=== PATIENT | male | born 1950 | race Caucasian/White ===

== ENCOUNTER 2017-02-02 07:18 | Emergency (ER) | payer MEDICARE, OTHER ==
[~2017-02-02] VITALS: Ht 177.8 cm; Wt 81.8 kg
[~2017-02-02 07:18] MED LIST: ASCRIPTIN325 MG PO; ASPIRIN 81M81 MG/TA2 PO; ASTELIN NASAL S34 ML NS; BRILINTA90 MG PO; FLOMAX 0.40.4 MG/CAP PO; FLONASE NASAL S16 GM NS; IMDUR 30MG30 MG/TAB PO; LIPITOR 40MG TA40 MG PO; NEXIUM 40MG40 MG PO; NITROMIST0.4 MG/Act SL; PATANOL OPHTHALM5 ML OU; PRINIVIL2.5 MG PO; PROCARDIA XL90 MG PO; PROCARDIA10 MG PO; PROSCAR 5MG5 MG PO; ROXICODONE 55 MG/TAB PO; TENORMIN 5050 MG/TAB PO; TENORMIN0.5 MG/ML PO; VOLTAREN GEL 1%1 TU TP; ZESTRIL 5MG5 MG PO; [UNRECOGNIZED DRUG - REMARK]
[2017-02-02 07:32] VITALS: BP 150/83; PULSE 80; TEMP 97
[2017-02-02] MEDS ORDERED: PERCOCET 325 MG1 TA2 PO (07:50)
[2017-02-02] MEDS ORDERED: ULTRAM 50MG TAB50 MG PO (07:50)
[2017-02-02] MEDS ORDERED: NATURAL IRON65 MG PO (08:20)
[2017-02-02] MEDS ORDERED: REFRESH PLUS 00.4 M1 OP (08:22)
[2017-02-02] MEDS ORDERED: SALINE 45 ML45 ML NS (08:23)
[2017-02-02] MEDS ORDERED: ZADITOR 5 ML5 ML OP (08:25)
[2017-02-02] MEDS ORDERED: SINGULAIR 110 MG/TAB PO (08:25)
== END 2017-02-02 08:53 | disposition home or self-care (01) ==
LOC: COL.ER 07:18
DX: M79.661 Pain in right lower leg (principal); M25.561 Pain in right knee; M79.671 Pain in right foot; M25.571 Pain in right ankle and joints of right foot; I25.10 Atherosclerotic heart disease of native coronary artery without angina pectoris; I10 Essential (primary) hypertension; K21.9 Gastro-esophageal reflux disease without esophagitis; F17.210 Nicotine dependence, cigarettes, uncomplicated; Z23 Encounter for immunization; Z79.82 Long term (current) use of aspirin; W10.9XXA Fall (on) (from) unspecified stairs and steps, initial encounter; Y92.009 Unspecified place in unspecified non-institutional (private) residence as the place of occurrence of the external cause
CPT/HCPCS: J3010

== ENCOUNTER 2019-08-29 10:30 | Inpatient (IN) | payer MEDICARE, OTHER ==
[~2019-08-29] VITALS: Ht 177.8 cm; Wt 81.2 kg
[~2019-08-29 10:30] MED LIST changes: +NATURAL IRON65 MG PO; +PERCOCET 325 MG1 TA2 PO; +REFRESH PLUS 00.4 M1 OP; +SALINE 45 ML45 ML NS; +SINGULAIR 110 MG/TAB PO; +ULTRAM 50MG TAB50 MG PO; +ZADITOR 5 ML5 ML OP
[2019-08-29 11:06] LABS: HEMATOCRIT 51.2 % (42.0-52.0); HEMOGLOBIN 17.1 g/dl (13.5-18.0); MEAN CELL VOLUME 87 fl (80.0-100.0); MEAN CORPUSCULAR HEMOGLOBIN 29 pg (27.0-31.0); MEAN CORPUSCULAR HGB CONC 33 g/dl (33.0-37.0); MEAN PLATELET VOLUME 11.2 fl (7.4-10.4); PLATELET COUNT 199 K/mm3 (130-400); REDCELL DISTRIBUTION WIDTH-CV 14.4 % (11.5-14.5)
[2019-08-29] MEDS ORDERED: TIAZAC180 MG PO (11:06)
[2019-08-29] MEDS ORDERED: IRON 27 MG PO ×2 (11:07→11:09)
[2019-08-29] MEDS ORDERED: PATANOL OPHTHALM5 ML OU ×3 (11:08→11:12)
[2019-08-29] MEDS ORDERED: PATANOL OPHTHALM5 ML OD (11:08)
[2019-08-29] MEDS ORDERED: REFRESH TEARS 330 ML OP (11:11)
[2019-08-29] MEDS ORDERED: PROTONIX 40MG T40 MG PO (11:11)
[2019-08-29 11:19] LABS: ALBUMIN 4.6 gm/dL (3.5-5.0); BILIRUBIN,TOTAL 1.2 mg/dL (0.0-1.0); CALCIUM 9.2 mg/dL (8.4-10.2); CREATININE, serum 0.88 (0.66-1.25); TOTAL PROTEIN 8.8 gm/dL (6.4-8.2)
[2019-08-29 11:56] LABS: BAND 35 % (0-10); LYMPHOCYTE 18 % (20.0-51.0); NEUTROPHILS 31 % (42.0-75.2); PLATELET ESTIMATE NORMAL (NORMAL)
[2019-08-29 12:06] LABS: COLLECTION METHOD CLEAN CATCH
[2019-08-29 12:15] LABS: MUCOUS Present /lpf; PH 5 (5-8); SQUAMOUS EPITHELIAL None Seen /hpf; URINE APPEARANCE Clear; URINE BACTERIA None Seen /hpf; URINE BILIRUBIN Negative (NEGATIVE); URINE BLOOD Negative (NEGATIVE); URINE COLOR Yellow; URINE GLUCOSE Negative (NEGATIVE); URINE KETONE 1+ (NEGATIVE); URINE LEUKOCYTE ESTERASE Negative (NEGATIVE); URINE NITRATE Negative (NEGATIVE); URINE PROTEIN(semi-quant) 1+ (NEGATIVE); URINE RBC 0-2 /hpf; URINE UROBILINOGEN Negative (NEGATIVE)
[2019-08-29 13:15] VITALS: BP 131/78; PULSE 100; TEMP 98.8
--- NOTE | 2019-08-29 13:45 | NUR ---
Patient was brought to room by ER nurse via wheelchair. Alert and oriented x4. Says pain in abd and back is starting to come back. Abd distended, firm, hypoactive bowel sounds in all quadrants. IV to left AC without redness/drainage/edema.
--- NOTE | 2019-08-29 13:56 | NUR ---
Patient requests pain medication due to increasing pain in abd. Administered Percocet as prescribed. Denies further needs.
--- NOTE | 2019-08-29 14:59 | NUR ---
Continues to rate pain in abd as 10. Requests additional pain meds. Administered Dilaudid as prescribed. Patient sitting up in bed eating lunch tray. in room talking with the patient. Patient denies further needs at this time.
[2019-08-29 16:46] VITALS: BP 132/78; PULSE 116; TEMP 98.6
--- NOTE | 2019-08-29 18:03 | NUR ---
Sitting up in chair. Says that his lunch tray came later in the afternoon so he was not too hungry this evening. Asks if he gets hungry this evening if there are snacks that he would be able to eat. Explain the snacks available in the nourishment room. Patient says that he passed a small amount of gas earlier. Explain that if he does have a bowel movement to leave it in the toilet and call the staff so that we can see it. Rates current pain 2-/10. Denies needs at this time.
[2019-08-29 20:16] VITALS: BP 144/82; PULSE 107; TEMP 99.5
--- NOTE | 2019-08-29 21:30 | NUR ---
Pt had a small loose BM at the beginning of the shift. He was able to get a shower prior to shift change. Pt was sitting up in the chair and he stated that he felt very full. Pt did ask for a sprite drink to help with hiccups. Pt was ambulating in the room very well. Pt has his call light within reach
[2019-08-30] VITALS (7 sets, daily range): BP systolic 137–167; BP diastolic 79–93; PULSE 89–105; TEMP 97.9–99
--- NOTE | 2019-08-30 01:15 | NUR ---
Pt IV pump was beeping and I went in to check on him. Pt was ambulating to the bathroo. Pt did make it to the toilet but he vomited a large amount of vomit in the toilet. He stated that after the hiccups he drink the sprite and he heard the beeping from the pump and decided to go to the bathroom. He was nauseated and tried to make it to the toliet before he vomited. He was given wipes and was helped to get all cleaned up. There was a bag or LR hung at this time as well. Pt is currently back in the chair resting and stated that he felt so much relief after vomiting. Pt has his call light within reach
--- NOTE | 2019-08-30 04:29 | NUR ---
Pt is currently in his chair sleeping. He stated that it was more comfortable for him to sit up in the chair. I did wake him up to make sure that he wasn't having any pain. He stated that he was no having any pain at this time and that he was able to sleep. Call light is within reach
--- NOTE | 2019-08-30 05:33 | NUR ---
Pt used his call light and requested pain mediation .He stated that he was at a 7 out of 10. Pt was given pain medication at this time. Pt has his call light within reach and is currently sitting up in the chair.
--- NOTE | 2019-08-30 07:08 | NUR ---
Pt is currently sitting up in chair. Pt has call light within reach. Reported off to CAROLE Patel
--- NOTE | 2019-08-30 08:20 | NUR ---
Patient sitting up in recliner. Alert and oriented x 3. Assessment complete. Patient had green emisis after eating breakfast. Denies nausea a this time. Hypoactive bowel sounds. Patient states he is still passing some gas. Denies pain or further needs at this time.
--- NOTE | 2019-08-30 08:50 | NUR ---
HALEY met with the patient to discuss discharge plan. The patient lives in [place] with his , Anisa (ph#[phone]), to discuss discharge plan. He reports independence with ADLs and does not have any DME. The patient receives primary care at [facility]. He also receives his medications at [facility]. He reports no difficulties obtaining his meds. The patient does not have advanced directives in EMR, but he states that he thinks that he may have them completed. He states that he would have designated his as his DPOA-HC. The patient plans to return home with his upon discharge. No additional needs at this time.
[2019-08-30 09:38] LABS: MEAN CELL VOLUME 86 fl (80.0-100.0); MEAN CORPUSCULAR HEMOGLOBIN 29 pg (27.0-31.0); MEAN CORPUSCULAR HGB CONC 33 g/dl (33.0-37.0); MEAN PLATELET VOLUME 10.9 fl (7.4-10.4); PLATELET COUNT 183 K/mm3 (130-400); RED BLOOD COUNT 5.23 M/mm3 (4.20-5.60); REDCELL DISTRIBUTION WIDTH-CV 14.4 % (11.5-14.5)
[2019-08-30 09:45] LABS: ALBUMIN 3.9 gm/dL (3.5-5.0); BILIRUBIN,TOTAL 0.6 mg/dL (0.0-1.0); CALCIUM 8.9 mg/dL (8.4-10.2); CREATININE, serum 0.74 (0.66-1.25); POTASSIUM 3.6 mmol/L (3.4-5.0); TOTAL PROTEIN 7.3 gm/dL (6.4-8.2)
[2019-08-30 10:12] LABS: BAND 36 % (0-10); LYMPHOCYTE 26 % (20.0-51.0); NEUTROPHILS 28 % (42.0-75.2); PLATELET ESTIMATE NORMAL (NORMAL)
--- NOTE | 2019-08-30 10:56 | NUR ---
Patient showered, no further needs.
--- NOTE | 2019-08-30 11:36 | NUR ---
First visit from the food general manager. No needs right now.
--- NOTE | 2019-08-30 19:32 | NUR ---
Patient doing well, states relief of hiccups after medication administration. Sleeping at this time. Fluids continue to infuse per orders. Reported off to public address systems mechanic.
--- NOTE | 2019-08-30 20:00 | NUR ---
PT HAS 200CC OF DARK GREEN EMESIS. IS SITTING IN CHAIR AT BEDSIDE. ABD FIRM AND DISTENDED WITH HYPOACTIVE BS. HAS NOT HAD ANY STOOLS TODAY. IV SITE TO LEFT AC WITHOUT REDNESS OR SWELLING. ON CLEAR LIQUIDS.
--- NOTE | 2019-08-30 21:32 | NUR ---
PT HAS HICCUPS AND PAIN TO ABD 6/10. MEDICATED WITH IV DILAUDID AND IM THORAZINE AT THIS TIME.
[2019-08-31 03:15] VITALS: BP 138/74; PULSE 102; TEMP 99.2
--- NOTE | 2019-08-31 05:00 | NUR ---
Pt has mod semi-formed brown stool. Reports his stomach feels softer.
[2019-08-31 07:00] LABS: BASO % 0.2 % (0.0-2.0); EOS % 0.7 % (0-4.0); GRAN # 2.9 (1.4-6.5); GRAN % 64.6 % (42.2-75.2); HEMATOCRIT 40.1 % (42.0-52.0); HEMOGLOBIN 13.3 g/dl (13.5-18.0); LYMPH # 0.8 (1.2-3.4); LYMPH % 16.9 % (20.0-51.0); MEAN CELL VOLUME 87 fl (80.0-100.0); MEAN CORPUSCULAR HEMOGLOBIN 29 pg (27.0-31.0); MEAN CORPUSCULAR HGB CONC 33 g/dl (33.0-37.0); MEAN PLATELET VOLUME 11.6 fl (7.4-10.4); MONO # 0.8 (0.1-0.6); MONO % 17.4 % (1.7-9.3); PLATELET COUNT 175 K/mm3 (130-400); RED BLOOD COUNT 4.61 M/mm3 (4.20-5.60); REDCELL DISTRIBUTION WIDTH-CV 14.1 % (11.5-14.5)
[2019-08-31 07:14] LABS: ALBUMIN 3.3 gm/dL (3.5-5.0); BILIRUBIN,TOTAL 0.5 mg/dL (0.0-1.0); CALCIUM 8.4 mg/dL (8.4-10.2); CREATININE, serum 0.7 (0.66-1.25); POTASSIUM 3.3 mmol/L (3.4-5.0); TOTAL PROTEIN 6.3 gm/dL (6.4-8.2)
[2019-08-31 07:32] VITALS: BP 148/81; PULSE 104; TEMP 98.1
[2019-08-31 12:07] VITALS: BP 166/99; PULSE 89; TEMP 97.7
[2019-08-31 15:52] VITALS: BP 145/87; PULSE 86; TEMP 98.6
--- NOTE | 2019-08-31 18:00 | NUR ---
Patient has been doing well today. No abdominal pain or nausea. His shoulder is sore from an IM injection he received. He has been out of bed most the day. He is independent in the room. Patient was advanced to full liquids today and is tolerating well. His only complaint today was that his eyes and nares felt dry. Eyedrops and nasal spray ordered. He had an order for stool cultures due to diarrhea after his first BM this am. It was sent to the lab. No other changes at this time. Call light within reach.
--- NOTE | 2019-08-31 20:00 | NUR ---
Patient sitting up in recliner. Alert and oriented x 3. Assessment complete. Patient denies pain at this time. States he is passing gas and had a BM today. Ambulated >150 feet in lou with spouse. IV restarted to right forarm x 2 attempts. Fluids infusing per orders. Denies further needs at this time.
[2019-08-31 20:02] VITALS: BP 132/75; PULSE 86; TEMP 98.6
[2019-09-01 00:30] VITALS: BP 126/83; PULSE 76; TEMP 98.3
--- NOTE | 2019-09-01 03:40 | NUR ---
Patient doing well throughout the night. Initially having difficulty falling asleep. Independent in room. Denies pain or further needs at this time.
--- NOTE | 2019-09-01 07:00 | NUR ---
Report received from CAROLE Quijano. pT in bed resting with no needs, willcontinue to monitor.
[2019-09-01 07:08] LABS: BASO % 0.2 % (0.0-2.0); EOS # 0.1 (0.0-0.7); EOS % 2.1 % (0-4.0); GRAN # 3.2 (1.4-6.5); GRAN % 62.4 % (42.2-75.2); HEMATOCRIT 40.3 % (42.0-52.0); HEMOGLOBIN 13.3 g/dl (13.5-18.0); LYMPH % 19.3 % (20.0-51.0); MEAN CELL VOLUME 87 fl (80.0-100.0); MEAN CORPUSCULAR HEMOGLOBIN 29 pg (27.0-31.0); MEAN CORPUSCULAR HGB CONC 33 g/dl (33.0-37.0); MEAN PLATELET VOLUME 11.5 fl (7.4-10.4); MONO # 0.8 (0.1-0.6); MONO % 15.4 % (1.7-9.3); PLATELET COUNT 187 K/mm3 (130-400); RED BLOOD COUNT 4.63 M/mm3 (4.20-5.60); REDCELL DISTRIBUTION WIDTH-CV 14.2 % (11.5-14.5)
[2019-09-01 07:27] LABS: ALBUMIN 3.3 gm/dL (3.5-5.0); BILIRUBIN,TOTAL 0.5 mg/dL (0.0-1.0); CALCIUM 8.8 mg/dL (8.4-10.2); CREATININE, serum 0.65 (0.66-1.25); POTASSIUM 3.8 mmol/L (3.4-5.0); TOTAL PROTEIN 6.5 gm/dL (6.4-8.2)
[2019-09-01 08:05] VITALS: BP 133/82; PULSE 94; TEMP 97.8
--- NOTE | 2019-09-01 08:30 | NUR ---
Assessment charted. PT doing well, anticipating discharge today. Passing gas, has no pain, will continue ot monitor.
--- NOTE | 2019-09-01 10:10 | NUR ---
Discharge teaching completed at this time. INT dc'd, tip intact. Reviewed f/u with nimco MEADE, home meds. Pt verbalized understanding. Pt left with all bleongings, escorted out by myself. criteria met.
== END 2019-09-01 10:00 | disposition home or self-care (01) | DRG 390 ==
LOC: COL.ER 10:30 → SURG 12:20
PROVIDERS: Family Medicine; ADMIT Surgery
DX: K56.600 Partial intestinal obstruction, unspecified as to cause (principal); K21.9 Gastro-esophageal reflux disease without esophagitis; E78.5 Hyperlipidemia, unspecified; E87.6 Hypokalemia; I25.10 Atherosclerotic heart disease of native coronary artery without angina pectoris; I25.2 Old myocardial infarction; Z95.5 Presence of coronary angioplasty implant and graft; Z87.891 Personal history of nicotine dependence
CPT/HCPCS: OP; J1170; J2405; J3010; J3230; J7120; Q9967

== ENCOUNTER 2020-10-14 05:21 | Inpatient (IN) | payer MEDICARE, OTHER ==
[~2020-10-14] VITALS: Ht 177.8 cm; Wt 75.9 kg
[~2020-10-14 05:21] MED LIST changes: +IRON 27 MG PO; +PATANOL OPHTHALM5 ML OD; +PROTONIX 40MG T40 MG PO; +REFRESH TEARS 330 ML OP; +TIAZAC180 MG PO
[2020-10-14 05:40] LABS: BASO % 0.2 % (0.0-2.0); EOS # 0.1 (0.0-0.7); EOS % 2.5 % (0-4.0); GRAN # 2.4 (1.4-6.5); GRAN % 50.5 % (42.2-75.2); HEMATOCRIT 49.1 % (42.0-52.0); HEMOGLOBIN 15.9 g/dl (13.5-18.0); LYMPH # 1.6 (1.2-3.4); LYMPH % 32.6 % (20.0-51.0); MEAN CELL VOLUME 83 fl (80.0-100.0); MEAN CORPUSCULAR HEMOGLOBIN 27 pg (27.0-31.0); MEAN CORPUSCULAR HGB CONC 32 g/dl (33.0-37.0); MONO # 0.7 (0.1-0.6); PLATELET COUNT 240 K/mm3 (130-400); RED BLOOD COUNT 5.89 M/mm3 (4.20-5.60); REDCELL DISTRIBUTION WIDTH-CV 17.6 % (11.5-14.5)
[2020-10-14 05:50] LABS: PROTHROMBIN TIME 11.3 SECONDS (9.7-12.8)
[2020-10-14 05:51] LABS: ALANINE AMINOTRANSFERASE 29 U/L (4-49); ALBUMIN 4.7 gm/dL (3.5-5.0); ALKALINE PHOSPHATASE 100 U/L (50-136); ANION GAP 15 mmol/L (7-16); AST,SGOT 34 U/L (15-37); BILIRUBIN,TOTAL 0.4 mg/dL (0.0-1.0); BLOOD UREA NITROGEN 14 mg/dL (9-20); CALCIUM 9.4 mg/dL (8.4-10.2); CARBON DIOXIDE 21 mmol/L (22-30); CHLORIDE 105 mmol/L (98-107); CREATININE, serum 0.93 (0.66-1.25); GLUCOSE 119 mg/dL (74-106); POTASSIUM 3.8 mmol/L (3.4-5.0); SODIUM 141 mmol/L (137-145)
[2020-10-14 06:02] LABS: TROPONIN-I < 0.012 ng/mL (0.000-0.035)
[2020-10-14] MEDS ORDERED: LIPITOR20 MG PO (07:05)
[2020-10-14] MEDS ORDERED: TIAZAC240 MG PO (07:05)
[2020-10-14 09:08] VITALS: BP 157/97; PULSE 96; TEMP 97.4
[2020-10-14 12:44] VITALS: BP 160/93; PULSE 94; TEMP 97.5
[2020-10-14 17:09] VITALS: BP 134/110; PULSE 107; TEMP 98.1
[2020-10-14 20:48] VITALS: BP 177/107; PULSE 98; TEMP 97.7
[2020-10-14 23:54] VITALS: BP 151/105; PULSE 101; TEMP 97.9
[2020-10-15 03:05] VITALS: BP 162/95; PULSE 83; TEMP 97.5
[2020-10-15 07:17] LABS: BASO % 0.4 % (0.0-2.0); EOS # 0.1 (0.0-0.7); EOS % 1.2 % (0-4.0); GRAN # 3.4 (1.4-6.5); GRAN % 60.4 % (42.2-75.2); HEMATOCRIT 47.6 % (42.0-52.0); HEMOGLOBIN 15.6 g/dl (13.5-18.0); LYMPH # 1.4 (1.2-3.4); LYMPH % 24.6 % (20.0-51.0); MEAN CELL VOLUME 83 fl (80.0-100.0); MEAN CORPUSCULAR HEMOGLOBIN 27 pg (27.0-31.0); MEAN CORPUSCULAR HGB CONC 33 g/dl (33.0-37.0); MEAN PLATELET VOLUME 10.4 fl (7.4-10.4); MONO # 0.8 (0.1-0.6); MONO % 13.2 % (1.7-9.3); PLATELET COUNT 244 K/mm3 (130-400); RED BLOOD COUNT 5.72 M/mm3 (4.20-5.60); REDCELL DISTRIBUTION WIDTH-CV 17.2 % (11.5-14.5)
[2020-10-15 07:35] LABS: CALCIUM 9.4 mg/dL (8.4-10.2); CREATININE, serum 0.78 (0.66-1.25); POTASSIUM 3.8 mmol/L (3.4-5.0)
[2020-10-15 08:22] VITALS: BP 161/97; PULSE 109; TEMP 97.5
[2020-10-15 09:53] LABS: CHOLESTEROL RISK RATIO 3.9
[2020-10-15 11:20] VITALS: BP 168/111; PULSE 114; TEMP 97.6
[2020-10-15 17:33] VITALS: BP 166/103; PULSE 104; TEMP 97.5
[2020-10-15 19:01] VITALS: BP 152/102; PULSE 112; TEMP 98
[2020-10-15 23:44] VITALS: BP 123/84; PULSE 99; TEMP 98
[2020-10-16 04:02] VITALS: BP 128/78; PULSE 81; TEMP 97.9
[2020-10-16 07:53] VITALS: BP 140/98; PULSE 113; TEMP 98
[2020-10-16] MEDS ORDERED: PLAVIX 75MG TAB75 MG PO (07:55)
[2020-10-16] MEDS ORDERED: LIPITOR 40MG TA40 MG PO (07:55)
[2020-10-16 12:46] VITALS: BP 148/103; PULSE 112; TEMP 98.1
[2020-10-16 13:49] VITALS: BP 148/103; PULSE 112; TEMP 98.1
[2020-10-16] MEDS ORDERED: TIAZAC300 MG PO (14:38)
== END 2020-10-16 16:00 | DRG 65 ==
LOC: COL.ER 05:21 → MEDICAL 07:50
PROVIDERS: Emergency Medicine; Physician Assistant; Student in an Organized Health Care Education/Training Program; ADMIT Hospitalist
DX: I63.9 Cerebral infarction, unspecified (principal); G81.91 Hemiplegia, unspecified affecting right dominant side; E04.1 Nontoxic single thyroid nodule; K21.9 Gastro-esophageal reflux disease without esophagitis; I25.10 Atherosclerotic heart disease of native coronary artery without angina pectoris; E78.5 Hyperlipidemia, unspecified; I10 Essential (primary) hypertension; J30.2 Other seasonal allergic rhinitis; R00.0 Tachycardia, unspecified; R47.81 Slurred speech; R29.810 Facial weakness; I34.0 Nonrheumatic mitral (valve) insufficiency; R29.704 NIHSS score 4; Z95.5 Presence of coronary angioplasty implant and graft; I25.2 Old myocardial infarction; Z79.82 Long term (current) use of aspirin; Z87.891 Personal history of nicotine dependence
CPT/HCPCS: 99223-AI; 99232-AI; 99239; A9585; J1650; J7030; Q9967

== ENCOUNTER 2020-10-16 13:15 | Inpatient (IN) | payer MEDICARE, OTHER ==
[~2020-10-16] VITALS: Ht 177.8 cm; Wt 76.3 kg
[~2020-10-16 13:15] MED LIST changes: +LIPITOR20 MG PO; +PLAVIX 75MG TAB75 MG PO; +TIAZAC240 MG PO
[2020-10-16] MEDS ORDERED: TIAZAC300 MG PO (14:38)
--- NOTE | 2020-10-16 16:00 | NUR ---
Received report from Luisa at [facility] Medical unit. Patient arrived at 4 pm and was admitted to room #338. Assessment was completed and orders put in. VTE order was added. Patient's weight was taken and oriented to room and IPR and Vital Signs taken. Diet order was placed with the kitchen.
[2020-10-16 17:55] VITALS: BP 140/98; BP 181/94; PULSE 93; TEMP 97.5
--- NOTE | 2020-10-16 20:00 | NUR ---
OBSERVED RLE WEAKNESS WITH TRACI LEG LIFTS WHEN IN BED AND RUE WEAKNESS WHEN REPOSITIONING SELF IN BED. DENIES CHEST PAIN/SOA AT THIS TIME. DENIES ANY NEEDS AT THIS TIME.
--- NOTE | 2020-10-16 20:39 | NUR ---
Patient's assessment was completed. A egg crate cushion was applied to patient's bed. Patient has a red blanchable bottom. Will continue to monitor.
--- NOTE | 2020-10-17 02:40 | NUR ---
PATIENT WOKE, REPORTED FELT LIKE VOIDING BUT REPORTING SOME DIFFICULTY. ABLE TO VOIDED WITH NO FURTHER FEELING OF INADEQUATE BLADDER EMPTYING WHEN SITTING ON STOOL WITH NO SEAT RISER. OBSERVED SOME DIFFICULTY TRANSITIONING FROM SIT TO STAND WITHOUT MAX ASST FROM STAFF NURSE. PATIENT REQUEST TO SLEEP SITTING UP IN RECLINER CHAIR DUE TO FEELING RESTLESS. DENIES ANY PAIN OR DISCOMFORT. CHAIR ALARM ON WHILE UP IN CHAIR.
[2020-10-17 04:38] VITALS: BP 149/93; PULSE 86; TEMP 98
--- NOTE | 2020-10-17 06:55 | NUR ---
CHANGE OF SHIFT REPORT GIVEN TO DAY SHIFT NURSE, BACILIO LAM.
--- NOTE | 2020-10-17 13:44 | NUR ---
Follow-up visit; Patient thanked for checking on him again. He seems to be a little better emotionally, however it could have been the subject of our conversation which did not primarily focus on him today (by his choice). He talked about plans to go to [place] when the COVID ban is over. said that is an awesome thing to look forward to and wished him well. will continue to look in on G E while he is hospitalized.
--- NOTE | 2020-10-17 16:03 | NUR ---
The patient is new to [facility]. [facility] met with the patient to complete intake. The patient lives in [place] with his , Anisa. The patient denies DME use and is normally independent. The patient receives medical care and medications from [facility]. The patient does not have advanced directives in the EMR but believes he has completed them. SW will continue to follow to ensure the safest discharge disposition.
[2020-10-17 17:00] VITALS: BP 150/98; PULSE 100; TEMP 97.4
--- NOTE | 2020-10-17 21:33 | NUR ---
Resting quietly, updated on plan of care, VS stable, tolerating mechanical soft diet, reviewed Melatonin for sleep- verbalized understanding, assisted to bathroom upon request, call vicki w/i clement.
--- NOTE | 2020-10-18 03:14 | NUR ---
I received report from CAROLE Maurer. Pt is currently resting in bed and has his call light within reach.
--- NOTE | 2020-10-18 04:50 | NUR ---
Pt was uncomfortable in bed so pt was assisted with getting comfortable in bed. Pt was uncomfortable to we moved to the chair. Pt was assisted to the chair one person assist with walker and gait belt. Pt tolerated well. Pt has been using his urinal and I did empty it. Pt has his call light within reach, currently up in the chair.
[2020-10-18 05:50] VITALS: BP 138/81; PULSE 92; TEMP 97.6
--- NOTE | 2020-10-18 08:00 | NUR ---
PATIENT ASSISTED TO RESTROOM AND BACK TO THE BEDSIDE CHAIR WITH 1 MIN ASSIST GB AND WALKER. AM SHIFT ASSESSMENT COMPLETED. PATIENT DENIES COMPLAINTS OF PAIN. MORNING MEDICATIONS ADMINISTERED. CALL LIGHT WITHIN REACH. CHAIR ALARM ON. PATIENT DENIES ADDITIONAL NEEDS AT THIS TIME.
[2020-10-18 17:32] VITALS: BP 151/86; PULSE 87; TEMP 97.7
--- NOTE | 2020-10-18 18:55 | NUR ---
PATIENT SITTING UP IN BEDSIDE CHAIR. PRESENT IN ROOM. CALL LIGHT IN REACH. PATIENT DENIES NEEDS AT THIS TIME. REPORT GIVEN TO CAROLE HAMLIN.
--- NOTE | 2020-10-18 21:00 | NUR ---
PT SITTING IN RECLINER. AMB TO BR WITH WALKER. GOOD TECHNIQUE AMB WITH RT SIDED WEAKNESS. HAVING LOW BACK PAIN. USING KPAD. SEE MAR FOR TYLENOL GIVEN. ASSISTED TO BR- VOIDED. PT ABLE TO CHANGE INTO HS CLOTHES WITH VERY LITTLE HELP. ASSISTED TO BED. SEE MAR FOR MELATONIN GIVEN. CALL LIGHT IN REACH. BED ALARM SET.
--- NOTE | 2020-10-19 00:28 | NUR ---
PT UNCOMFORTABLE. ASSISTED TO RECLINER. DECLINED TYLENOL WHEN TIME OR KPAD. FEET ELEVATED. CHAIR ALARM SET.
[2020-10-19 06:02] VITALS: BP 150/87; PULSE 81; TEMP 97.6
--- NOTE | 2020-10-19 09:42 | NUR ---
PATIENT SITTING UP IN WHEELCHAIR AT THIS TIME. MORNING SHIFT ASSESSMENT COMPLETE. AM MEDICATIONS ADMINISTERED. PATIENT ASSISTED BACK INTO CHAIR FROM WHEELCHAIR. CHAIR ALARM ON. CALL LIGHT WITHIN REACH.
--- NOTE | 2020-10-19 12:03 | NUR ---
PATIENT REPORTING BACK PAIN THAT IS ACHY IN NATURE. PATIENT REFUSING K-PAD. PRN TYLENOL GIVEN. PATIENT DENIES ADDITIONAL NEEDS AT THIS TIME.
[2020-10-19 17:06] VITALS: BP 151/88; PULSE 78; TEMP 97.5
--- NOTE | 2020-10-19 18:33 | NUR ---
PATIENT ASSISTED TO THE BATHROOM AND BACK TO THE CHAIR BY PSYCHIATRIC TECH. ALARMS ON. CALL LIGHT WITHIN REACH. WILL REPORT OFF TO ONCOMING NURSE.
--- NOTE | 2020-10-19 20:48 | NUR ---
PT REPORTS BEING ANXIOUS TONIGHT "I CAN'T SETTLE DOWN". HAVING LOW BACK DISCOMFORT LEVEL 3. SEE MAR FOR TYLENOL AND MELATONIN GIVEN. PROVIDED EMOTIONAL SUPPORT. PT SITTING UP IN RECLINER. WATCHING A MOVIE ON TABLET. SLURRED SPEECH. WEAK ON RT SIDE. WILL CONTINUE TO MONITOR ANXIETY. CALL LIGHT IN REACH. CHAIR ALARM ON.
[2020-10-20 05:29] VITALS: BP 134/86; PULSE 74; TEMP 98
--- NOTE | 2020-10-20 09:06 | NUR ---
PT DENIED ANY COMPLAINTS THIS AM.
--- NOTE | 2020-10-20 13:48 | NUR ---
Lunchroom Aide met with the patient to follow up after the weekend. The patient had no questions at this time. Lunchroom Aide contacted the patient's , Anisa to introduce oneself. She stated she was on her way to visit the patient. No additional needs.
[2020-10-20 17:00] VITALS: BP 139/89; PULSE 88; TEMP 97.6
--- NOTE | 2020-10-20 18:55 | NUR ---
PT HAS NO COMPLAINTS TODAY, BROUGHT SPARKLING WATER WHICH IS LABELED IN THE FRIDGE FOR PT. HE PREFERS THIS TO REGULAR WATER.
--- NOTE | 2020-10-20 22:26 | NUR ---
ALERT AND ORIENTATED X4. DENIES PAIN, SOA OR DIZZY. BILATERAL CAR PINCHER ARE EQUAL. RT SIDE FOOT DRAG MINIMAL. UP W WALKER W STAND BY ASST TO BR. PM MEDS GIVEN ALONG W PRNS DISCUSSED. POC DISCUSSED. NEEDS MET.
[2020-10-21 04:22] VITALS: BP 140/78; PULSE 70; TEMP 98
--- NOTE | 2020-10-21 10:30 | NUR ---
Patient resting in bed, call light in reach and chair alarm set. Patient takes pills whole with water. Denies pain at this time.
--- NOTE | 2020-10-21 11:06 | NUR ---
Patient working with OT at this time.
--- NOTE | 2020-10-21 13:38 | NUR ---
Follow-up visit; Patient states he is doing well today and thanked Gopherman for looking in on him.
--- NOTE | 2020-10-21 16:31 | NUR ---
Patient resting in reciner, call light in reach and by his side. Patient attended all therapies today. Denies pain at this time. Does have difficulty at times with word finding, but is able to make his needs known.
[2020-10-21 17:56] VITALS: BP 141/89; PULSE 76; TEMP 97.8
--- NOTE | 2020-10-21 19:35 | NUR ---
RECEIVED CHANGE OF SHIFT REPORT FROM DAY SHIFT NURSE. PATIENT UP IN CHAIR WITH CHAIR ALARM ON.
[2020-10-22 05:14] VITALS: BP 151/89; PULSE 87; TEMP 97.4
--- NOTE | 2020-10-22 07:00 | NUR ---
CHANGE OF SHIFT REPORT GIVEN TO DAY SHIFT NURSE, FREDI LAM.
--- NOTE | 2020-10-22 08:07 | NUR ---
Patient resting in recliner, call light in reach and chair alarm set. Patient denies questions at this time.
--- NOTE | 2020-10-22 10:44 | NUR ---
Patient resting in recliner, call light in reach and alarm set. He just finished his PT therapy at 10:30 this morning. Denies any questions at this time.
[2020-10-22 16:07] VITALS: BP 131/86; PULSE 75; TEMP 97.5
--- NOTE | 2020-10-22 16:34 | NUR ---
Arts Manager met with the patient and his to present the Team Conference Note. The team to re-evaluate next week, 10/29. SW discussed setting up a family meeting next Sunday 10/29. The patient's states her morning is open but has an appointment 1:45-3:45. She would be agreeable to a 1:30 meeting or a morning meeting. HALEY collaborated the above information with BRAIN Santos Director.
--- NOTE | 2020-10-22 19:15 | NUR ---
RECEIVED CHANGE OF SHIFT REPORT FROM DAY SHIFT NURSE. UP IN CHAIR WITH CHAIR ALARM ON. REQUESTED AND GIVEN PAIN MEDS, SEE EMAR FOR MEDS GIVEN.
--- NOTE | 2020-10-22 19:44 | NUR ---
Patient attended all therapies this shift. Tolerated diet well. His stopped by to visit him this afternoon. He is very motivated and works well with staff. He is currently resting in recliner, call light in reach and alarm set. Reported off to night nurse.
--- NOTE | 2020-10-22 20:00 | NUR ---
OBSERVED SOME RUE AND RLL WEAKNESS WITH MOVEMENT. DENIES CHEST PAIN/SOA/NAUSEA AT THIS TIME. DENIES NUMBNESS/TINGLING TO EXTREMITIES.
--- NOTE | 2020-10-22 22:11 | NUR ---
PATIENT REPORTS BEING UNCOMFORTABLE LAYING IN BED. REQUESTED TO SLEEP IN RECLINER CHAIR. CHAIR ALARM ON WHILE UP IN CHAIR
[2020-10-23 04:48] VITALS: BP 140/82; PULSE 74; TEMP 97.5
--- NOTE | 2020-10-23 06:47 | NUR ---
CHANGE OF SHIFT REPORT GIVEN TO DAY SHIFT NURSE, BACILIO LAM.
--- NOTE | 2020-10-23 10:09 | NUR ---
Follow-up; Patient doing Physical TherapyAshleyfully offered "Good morning" when he saw Education Supervisor, who offers encouragement and God's blessings.
--- NOTE | 2020-10-23 10:24 | NUR ---
PT DENIES PAIN THIS AM, IN HIGH SPIRITS. UNABLE TO URINATE EARLIER THIS MORNING WHEN ATTEMPTED. DID GO LATER THIS AM AND IT WAS PALE, SOMEWHAT CLOUDY.
[2020-10-23 18:00] VITALS: BP 136/87; PULSE 84; TEMP 98
--- NOTE | 2020-10-23 21:00 | NUR ---
PT SITTING UP IN RECLINER. WATCHING MOVIE ON TABLET. RT SIDE WEAKNESS. HAVING LOW BACK PAIN. SEE MAR FOR TYLENOL GIVEN. NOT USING KPAD AT THIS TIME. CALL LIG IN REACH. CHAIR ALARM SET.
[2020-10-24 05:28] VITALS: BP 139/89; PULSE 82; TEMP 97.9
--- NOTE | 2020-10-24 06:28 | NUR ---
PT SITTING UP IN CHAIR. DENEIS NEEDS AT THIS TIME. CALL LIGHTH IN REACH
--- NOTE | 2020-10-24 10:01 | NUR ---
Patient working with Speech Therapy at this time. Patient is independent with eating.
--- NOTE | 2020-10-24 15:03 | NUR ---
Patient was a one person transfer to the toilet using his walker and gait belt. He had a large BM this afternoon that was continent. Patient was SBA with toileting. Patient tolerating diet well this shift. Will continue to monitor.
[2020-10-24 17:36] VITALS: BP 136/88; PULSE 81; TEMP 97.7
--- NOTE | 2020-10-24 18:50 | NUR ---
ASSISTED TO BR WITH WALKER THEN TOOK A WALK IN [place]. PT GETS IN A HURRY. ENC TO SLOW DOWN. RT SIDED WEAKNESS. RETUENED TO RECLINER. CHAIR ALARM SET. CALL LIGHT IN REACH.
--- NOTE | 2020-10-24 21:30 | NUR ---
TRANSFERRED TO BED FROM RECLINER WITH WALKER. DENIES NEEDS AT THIS TIEM. TYLENOL GIVEN EARLIER HELP LOW BACK PAIN. REFUSED KPAD. CALL LIGHT IN REACH. BED ALARM SET.
[2020-10-25 05:24] VITALS: BP 156/82; PULSE 77; TEMP 97.8
[2020-10-25 16:34] VITALS: BP 127/86; PULSE 76; TEMP 97.4
--- NOTE | 2020-10-25 21:00 | NUR ---
PT SITTING IN CHAIR AT BEDSIDE, WATCHING TV. DENIES CONCERNS. TAKES HS MEDS WITHOUT PROBLEM. RT FOOT MILDLY RASHY LOOKING, LOTRIMIN CR APPLIED. IS ALERT AND ORIENTED X4.
--- NOTE | 2020-10-25 22:30 | NUR ---
ASSISTED TO BED. NO CONCERNS OFFERED AT THIS TIME.
[2020-10-26 04:19] VITALS: BP 130/81; PULSE 51; TEMP 97
--- NOTE | 2020-10-26 06:15 | NUR ---
PT UP IN CHAIR AT BEDSIDE. TAKES SCHEDULED AM MED.
--- NOTE | 2020-10-26 08:10 | NUR ---
UPON ENTRY TO THE ROOM THE PATIENT IS SITTING UP IN THE BEDSIDE CHAIR. MORNING MEDICATIONS ADMINISTERED. PATIENT SHIFT ASSESSMENT COMPLETED. PATIENT IS REPORTING SOME ACHY LOW BACK PAIN RATED A 2/10 ON A 0-10 SCALE. TYLENOL OFFERED, PATIENT REFUSED. CALL LIGHT WITHIN REACH. TV ON. ALARMS ON. PATIENT DENIES ANY NEEDS AT THIS TIME.
[2020-10-26 17:09] VITALS: BP 145/76; PULSE 62; TEMP 98.3
--- NOTE | 2020-10-26 18:42 | NUR ---
RECEIVED CHANGE OF SHIFT REPORT FROM DAY SHIFT NURSE.
--- NOTE | 2020-10-26 18:56 | NUR ---
REPORT GIVEN TO CAROLE RIVERA.
--- NOTE | 2020-10-27 00:49 | NUR ---
PATIENT SLEEPS, DOES NOT WAKE WHEN ROOM ENTERED BY STAFF.
[2020-10-27 05:01] VITALS: BP 127/79; PULSE 69; TEMP 97.2
--- NOTE | 2020-10-27 06:55 | NUR ---
CHANGE OF SHIFT REPORT GIVEN TO DAY SHIFT NURSE, BACILIO LAM.
--- NOTE | 2020-10-27 09:57 | NUR ---
PT SLEPT WELL LAST NIGHT, DENIES PAIN THIS AM OR ANY COMPLAINTS. AM MEDS GIVEN PRIOR TO THERAPY START.
--- NOTE | 2020-10-27 13:43 | NUR ---
SW met with the patient to introduce oneself and to follow up after the weekend. The patient just finished his last therapy session and states that he is doing okay. He states that they are talking about him maybe be able to d/c by the end of the week and he is excited about that. He had no questions or concerns for SW at this time.
--- NOTE | 2020-10-27 14:34 | NUR ---
IPR Director notified HALEY that the team has set a tentative discharge date for this with outpatient therapy. All three disciplines may be be recommended. A time for team meeting has also not be set yet. HALEY met with the patient and his , Anisa, to update. The patient and Anisa are agreeable to the plan and to getting outpatient therapy at [facility], since they have all three disciplines. Anisa reports that her whole afternoon is open now and that she would be available for the patient/family meeting.
[2020-10-27 15:26] VITALS: BP 128/77; PULSE 68; TEMP 97.7
--- NOTE | 2020-10-27 19:09 | NUR ---
RECEIVED CHANGE OF SHIFT REPORT FROM DAY SHIFT NURSE.
--- NOTE | 2020-10-27 19:37 | NUR ---
PT HOPING TO DISCHARGE LATER THIS WEEK, WORKING TOWARDS MOD-I IN ROOM WITH THERAPY. NO COMPLAINTS
--- NOTE | 2020-10-27 20:00 | NUR ---
DENIES CHEST PAIN/SOA AT THIS TIME. AMBULATES WITH STEADY GAIT. DENIES ANY DISCOMFORT OR NEEDS AT THIS TIME.
[2020-10-28 04:46] VITALS: BP 130/74; PULSE 81; TEMP 97.6
--- NOTE | 2020-10-28 07:03 | NUR ---
CHANGE OF SHIFT REPORT GIVEN TO DAY SHIFT NURSE, BACILIO LAM.
--- NOTE | 2020-10-28 09:48 | NUR ---
PT REPORTS NO COMPLAINTS THIS AM, SLEPT WELL UP IN RECLINER.
--- NOTE | 2020-10-28 14:08 | NUR ---
Team meeting was scheduled at 0930. SW contacted the patient's , Anisa, and set up the patient/family meeting for tomorrow at 1300, by speaker phone.
[2020-10-28 16:29] VITALS: BP 142/87; PULSE 78; TEMP 97.7
--- NOTE | 2020-10-28 18:48 | NUR ---
RECEIVED CHANGE OF SHIFT REPORT FROM DAY SHIFT NURSE.
--- NOTE | 2020-10-28 19:19 | NUR ---
PT MADE MOD-I IN ROOM WITH FWW BY THERAPY, NO COMPLAINTS OR ISSUES TODAY. DISCHARGE TUESDAY.
--- NOTE | 2020-10-28 20:00 | NUR ---
PATIENT UP IN ROOM AD ISABEL WITH NO REPORTED CONCERNS OR QUESTIONS OR COMPLAINTS. DENIES ANY NEEDS. DENIES CHEST PAIN/SOA AT THIS TIME. DENIES NUMBNESS/TINGLING TO EXTREMITIES AT THIS TIME.
--- NOTE | 2020-10-29 02:15 | NUR ---
PATIENT SLEEPING, BREATHING NONLABORED AND EVEN. UP IN CHAIR. PATIENT INDEPENDENT IN ROOM WHEN AWAKE.
[2020-10-29 05:41] VITALS: BP 129/67; PULSE 78; TEMP 97.8
--- NOTE | 2020-10-29 07:27 | NUR ---
CHANGE OF SHIFT REPORT GIVEN TO DAY SHIFT NURSE, FREDI LAM.
--- NOTE | 2020-10-29 07:45 | NUR ---
Patient is independnt in his room with a walker. Patient denies any questions at this time.
--- NOTE | 2020-10-29 10:55 | NUR ---
Patient resting in recliner at this time following speech therapy.
--- NOTE | 2020-10-29 14:20 | NUR ---
HALEY attended the patient/family conference. The patient's , Anisa, was at bedside. IPR Director started by explaining the purpose of the meeting. PT/OT/ST then discussed the patient's progress so far and confirmed d/c date for tomorrow with outpatient PT/OT/ST. They would also recommend a 4WW. The patient and his were agreeable to the plan. SW discussed where they could obtain a 4WW and how there could be an out of pocket cost, due to the 4WW being considered a deluxe item. The patient and her were okay with having an out of pocket cost and chose [facility] for the 4WW. The team answered all questions. HALEY then contacted and faxed and emailed the 4WW order to Zari at [facility]. HALEY contacted [facility] and secured the patient a PT appointment on 11/07 at 1245, OT on 11/07 at 1345, and ST on 11/24 at 0930. HALEY notified the patient's RN of the appointments. HALEY will need to fax the patient's d/c orders to [facility]. Awaiting delivery of 4WW. HALEY met with the patient and reviewed the IPR Team Conference Note with him. The patient had no other questions or concerns for SW. HALEY presented and read the IM form outloud to him. The patient verbalized understanding and gave HALEY approval to sign the form on his behalf. HALEY provided him with a copy.
[2020-10-29] MEDS ORDERED: LIPITOR 40MG TA40 MG PO (14:36)
[2020-10-29] MEDS ORDERED: PLAVIX 75MG TAB75 MG PO (14:36)
[2020-10-29] MEDS ORDERED: TIAZAC300 MG PO (14:36)
--- NOTE | 2020-10-29 15:52 | NUR ---
Took patient for a walk around the surgical and medical unit so that he could get some more exercise. Patient very talkative and has improved with picking his feet up better when walking instead of draging them. Patient currently resting in recliner, call light in reach and is independent in his room with his 4ww. Discussed discharge that would be occuring tomorrow. Upon discharge patient will call [facility] to schedule a one week follow up appointment with his PCP. An appointment for patient to go [place] [facility] outpatient ultrasound was scheduled for 11/19/20 at 1:30 PM, Dx of Rt thyroid nodule. Patient will receive his therapies at [facility] [place]. See appointments with discharge orders.
[2020-10-29 15:59] VITALS: BP 134/74; PULSE 98; TEMP 97.6
[2020-10-30 05:12] VITALS: BP 154/90; PULSE 80; TEMP 97.1
--- NOTE | 2020-10-30 06:00 | NUR ---
PATIENT AND THIS NURSE WENT ON 2 SEPERATE WALKS AROUND THE WHOLE THIRD FLOOR LAST EVENING. PATIENT AMBULATED WELL WITH HIS WALKER. PATIENT STATED HE IS REALLY LOOKING FORWARD TO GOING HOME TODAY. NO NEW ISSUES NOTED OR REPORTED BY PATIENT THROUGHOUT THIS SHIFT.
--- NOTE | 2020-10-30 08:50 | NUR ---
Discussed Discharge process. Patient is independent in his room with grooming and eating this morning. Patient denies questions at this time.
--- NOTE | 2020-10-30 10:51 | NUR ---
Patient independent in his room. Denies questions at this time.
--- NOTE | 2020-10-30 12:59 | NUR ---
HALEY followed up with Zari at [facility] about the 4WW. Zari reports that they will be delivering the 4WW today. HALEY updated the patient and his RN. The patient is to discharge back home with his today, 10/30, and outpatient PT/OT/ST at [facility]. HALEY faxed the patient's orders to [facility]. No additional needs at this time.
--- NOTE | 2020-10-30 16:57 | NUR ---
Patient Health Summary, Discharge Summary, and Home Meds printed and reviewed with patient and . Stressed importance of follow up appointments. [facility] was called to have the following prescriptions be filled (Plavix, Atorvastatin, and Diltiazem) since patient's was not able to get to the [place] pharmacy in time before they closed. Attemped to call and cancel Rx at [facility] per patient's request, but that pharmacy would not answer the phone and they close at 5 pm. Patient's is aware that she will have to follow up with [facility] to have the Eprescibed meds canceled on [facility]'s end for the meds to be paid for by insurance at [facility]. 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 personal items, eye drops, and nasal spray. Patient transported via walking with gait belt and 4 WW by Giselle/CAROLE and seatbelted for ride home with spouse. Patient and denied questions.
--- NOTE | 2020-10-31 13:22 | NUR ---
Code of 88 chosen for walk 50 feet w/ 2 turns was determined by team discussion to be the most usual performance for this patient during the assessment period. Code of 4 chosen for walk 150 feet was determined by team discussion to be the most usual performance for this patient during the assessment period.--Danielle Fan, PD
== END 2020-10-30 16:50 | disposition home or self-care (01) | DRG 57 ==
PROVIDERS: ADMIT Internal Medicine
DX: I69.351 Hemiplegia and hemiparesis following cerebral infarction affecting right dominant side (principal); I25.10 Atherosclerotic heart disease of native coronary artery without angina pectoris; I10 Essential (primary) hypertension; I69.328 Other speech and language deficits following cerebral infarction; E04.1 Nontoxic single thyroid nodule; I25.2 Old myocardial infarction; R13.10 Dysphagia, unspecified; K21.9 Gastro-esophageal reflux disease without esophagitis; L29.9 Pruritus, unspecified; R00.0 Tachycardia, unspecified; G47.00 Insomnia, unspecified; E78.5 Hyperlipidemia, unspecified; J30.2 Other seasonal allergic rhinitis; Z79.82 Long term (current) use of aspirin; Z95.5 Presence of coronary angioplasty implant and graft
CPT/HCPCS: 99222-AI; 99231-AI; 99232-AI; 99239; J1650

== ENCOUNTER → 2020-11-19 | Outpatient (CLI) | payer MEDICARE, OTHER ==
[~2020-11-19] MED LIST changes: +TIAZAC300 MG PO
== END ==
LOC: COL.RAD 11-18 14:15
DX: E04.1 Nontoxic single thyroid nodule (principal)

== ENCOUNTER 2021-02-04 10:15 | Outpatient (RCR) | payer MEDICARE, OTHER | END 2021-02-05 | disposition home or self-care (01) | LOC: MKS.ESL.PT | DX: I63.9 Cerebral infarction, unspecified (principal) ==

== ENCOUNTER 2021-03-04 10:30 | Outpatient (RCR) | payer MEDICARE, OTHER | END 2021-03-04 11:00 | disposition home or self-care (01) | LOC: MKS.ESL.OT 10:30 | DX: Z86.73 Personal history of transient ischemic attack (TIA), and cerebral infarction without residual deficits (principal) ==

== ENCOUNTER 2021-06-06 01:05 | Emergency (ER) | payer MEDICARE, OTHER ==
[~2021-06-06] VITALS: Ht 177.8 cm; Wt 75.0 kg
[2021-06-06 02:25] VITALS: TEMP 97.2
[2021-06-06 05:04] VITALS: BP 126/78; PULSE 76
== END 2021-06-06 05:04 | disposition home or self-care (01) ==
LOC: COL.ER 01:05
DX: S93.402A Sprain of unspecified ligament of left ankle, initial encounter (principal); S69.92XA Unspecified injury of left wrist, hand and finger(s), initial encounter; I10 Essential (primary) hypertension; I25.10 Atherosclerotic heart disease of native coronary artery without angina pectoris; Z86.73 Personal history of transient ischemic attack (TIA), and cerebral infarction without residual deficits; Z79.82 Long term (current) use of aspirin; Z79.02 Long term (current) use of antithrombotics/antiplatelets; Z79.899 Other long term (current) drug therapy; W10.9XXA Fall (on) (from) unspecified stairs and steps, initial encounter

== ENCOUNTER 2021-09-25 06:55 | Outpatient (CLI) | payer MEDICARE, OTHER ==
[~2021-09-25] VITALS: Ht 175.4 cm; Wt 75.5 kg
[2021-09-25 07:42] LABS: HEMATOCRIT 38.4 % (42.0-52.0); HEMOGLOBIN 12.4 g/dl (13.5-18.0); MEAN CELL VOLUME 79 fl (80.0-100.0); MEAN CORPUSCULAR HEMOGLOBIN 26 pg (27-31); MEAN CORPUSCULAR HGB CONC 32 g/dl (33.0-37.0); PLATELET COUNT 287 K/mm3 (130-400); RED BLOOD COUNT 4.87 M/mm3 (4.20-5.60); REDCELL DISTRIBUTION WIDTH-CV 16.7 % (11.5-14.5)
[2021-09-25 07:44] LABS: INR 1.1 (0.8-3.0); PROTHROMBIN TIME 12.3 SECONDS (9.7-12.8)
[2021-09-25] MEDS ORDERED: IRON TABLETS325 MG PO (07:50)
[2021-09-25] MEDS ORDERED: LIPITOR 40MG TA40 MG PO (07:50)
[2021-09-25 07:51] LABS: CALCIUM 9.1 mg/dL (8.4-10.2); CREATININE, serum 0.94 mg/dL (0.72-1.25); POTASSIUM 4.1 mmol/L (3.5-4.5)
[2021-09-25] MEDS ORDERED: REFRESH PLUS 00.4 M1 OP (07:52)
[2021-09-25] MEDS ORDERED: TOPROL XL 25MG25 MG PO (07:53)
[2021-09-25 08:16] VITALS: BP 148/86; PULSE 68; TEMP 97.8
--- NOTE | 2021-09-25 08:58 | NUR ---
PROCEDURE CANCELLED D/T PT BEING UNABLE TO TOLERATE THE PROBE
[2021-09-25 09:15] VITALS: BP 137/90; PULSE 68
[2021-09-25 09:30] VITALS: BP 131/90; PULSE 65
[2021-09-25 09:45] VITALS: BP 133/87; PULSE 68
[2021-09-25 10:00] VITALS: BP 142/88; PULSE 63
[2021-09-25 10:15] VITALS: BP 141/89; PULSE 61
--- NOTE | 2021-09-25 10:24 | NUR ---
Pt ambulated to restroom with steady gait. He has tolerated PO fluids without issue. Pt is not sitting up in chair in room, awaiting final discharge instructions. remains at bedside, call light in reach.
--- NOTE | 2021-09-25 10:35 | NUR ---
Discharge instructions reviewed with pt and , both express understanding. He has tolerated PO without issue. He is steady on feet. INT DC'd with catheter intact. He is assisted out to 's car by wheelchair.
== END 2021-09-25 10:35 | disposition home or self-care (01) ==
LOC: COL.RAD 06:55
PROVIDERS: Internal Medicine Interventional Cardiology
DX: Z86.73 Personal history of transient ischemic attack (TIA), and cerebral infarction without residual deficits (principal)
CPT/HCPCS: J2704; J7120

== ENCOUNTER 2023-10-17 10:10 | Outpatient (RCR) | payer MEDICARE, OTHER ==
[~2023-10-17 10:10] MED LIST changes: +IRON TABLETS325 MG PO; +TOPROL XL 25MG25 MG PO
== END 2023-10-18 | disposition home or self-care (01) ==
LOC: WSST
DX: R13.12 Dysphagia, oropharyngeal phase (principal); R05.3 Chronic cough; Z86.73 Personal history of transient ischemic attack (TIA), and cerebral infarction without residual deficits